=== PATIENT | male | born 1995 | race Caucasian/White ===

== ENCOUNTER 2025-05-25 14:44 | Outpatient (RCR) | payer OTHER, SELFPAY ==
--- NOTE | 2025-05-25 16:05 | HP.PTEVAL_ITS ---
Patient's Visit Information Visit Information Visit Information: DOUGLAS HERZOG is a 30 year old M referred to Physical Therapy by BHAVYA Sharma with a diagnosis of R hip pain. Date of Evaluation: 05/25/25 Physical Therapist: Jeremy Truong, PT, ATC Visit Plan Frequency: 1x/Week Duration: 1-2 weeks Plan: Issued and instructed pt on HEP of hip flexor stretching. Pt to call if he needs more PT Subjective Subjective: Pt reports he has had R hip pain for greater than one year. Pt notes hi pain is intermittent and very situational. Pt reports his pain hurts the worst when he attempts to cross R LE over midline. Pt reports the pain is located on the anterior region of his R hip. Pt denies sleep difficulty at this time. Pt denies any tingling or numbness at this time. Pt reports he is not limited from doing the things he wants to do, he just has to change how often he does them. Pt likes to play basket ball, baseball, and golf which he has done very little this year. Pt has stairs that he needs to negotiate, which he has no difficulty with performing. 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 Pt reports his R hip does catch up on him on occasion. Pt wears a 1/2 inch heel lift at this time. 0/10 pain at rest, 6/10 pain at worst. Pain R anterior hip: Pain Intensity (Out of 10): 0 Pain Intensity Range: 6 Objective Objective: Neuro: B LE sensation is WNL to light touch Palpation: Pt is tender near R hip flexors and Sartorius distribution ROM: B LE's are equal compared bilaterally MMT: B LE's are strong and equal with all motions flexibility: Pt has discomfort with stretching the R hip flexors Goals Goal 1:: I with HEP Goal Time Frame: 1 Week Rehabilitation Potential Physical Therapy Diagnosis: Pt has R hip pain secondary to a tight R hip flexor. Rehabilitation Potential: Excellent Anticipated Interventions Patient/Client Instruction: Educate patient on: Condition and Plan of Care For the Purpose of:: To improve self management Therapeutic Exercise to Include: Flexibilty training For the Purpose of:: To decrease pain Text: Thank you for the opportunity to evaluate your patient. For Medicare and Medicare HMO plans, please review the plan of care and approve it. It will need to be FAXED BACK to us at [phone] for Medicare purposes. For Medicare only, by signing this I certify the plan of care. Please let me know if there are questions or concerns regarding this plan of care. Physician Signature: Date:
--- NOTE | 2025-07-12 10:49 | HP.PT.NRP ---
Patient Information Patient Information: DOUGLAS HERZOG was seen in my office for initial evaluation on 05/25/25. The following Plan of Care was established for this patient: POC Established Initial Frequency: 1x/Week Initial Duration: 1-2 weeks Anticipated Interventions Patient/Client Instruction: Educate patient on: Condition and Plan of Care For the Purpose of:: To improve self management Therapeutic Exercise to Include: Flexibilty training For the Purpose of:: To decrease pain Last Seen Last Seen: This patient was last seen in our office . Pertinent comments regarding their Physical therapy will appear below: Pt has not returned in greater than 30 days and is discontinued at this time. At this point I will be discontinuing this patient from physical therapy. I would be happy to see this patient again in the future if found appropriate by the physician. Thank you! Jeremy Truong, PT, ATC
== END 2025-05-25 19:00 | disposition home or self-care (01) ==
LOC: PT 14:44
PROVIDERS: PCP Physician Assistant; Referring Provider Nurse Practitioner Family; Visit Provider Nurse Practitioner Family
DX: M21.70 Unequal limb length (acquired), unspecified site (principal); M25.551 Pain in right hip
CPT/HCPCS: 97161

== ENCOUNTER → 2025-09-16 | Outpatient (CLI) | payer OTHER, SELFPAY ==
--- NOTE | 2025-09-16 11:30 | RAD_ITS ---
EXAM: RAD/Bone Length
== END | disposition home or self-care (01) ==
LOC: RAD 11:15
PROVIDERS: PCP Physician Assistant; Referring Provider Student in an Organized Health Care Education/Training Program; Visit Provider Student in an Organized Health Care Education/Training Program
DX: M79.671 Pain in right foot (principal); M21.70 Unequal limb length (acquired), unspecified site
CPT/HCPCS: 77073